=== PATIENT | male | born 1930 | race Caucasian/White ===

== ENCOUNTER 2016-10-12 15:06 | Inpatient (IN) | payer MEDICARE, BC, OTHER ==
--- NOTE | ~2016-10-12 | EKG ---
PATIENT: CLARK, GENE UNIT #: [id number] Ventricular Rate: 80 BPM Atrial Rate: 80 BPM P-R Interval: 130 ms QRS Duration: 86 ms Q-T Interval: 410 ms QTC Calculation(Bezet): 472 ms P [place]: 50 degrees Calculated R [place]: -11 degrees Calculated T [place]: 56 degrees Diagnosis Line: Sinus rhythm with sinus arrhythmia with occasional Diagnosis Line: Premature ventricular complexes Diagnosis Line: Nonspecific ST abnormality Diagnosis Line: Abnormal ECG Diagnosis Line: When compared with ECG of 19-MAY-2016 11:45, Diagnosis Line: Premature ventricular complexes are now Present Diagnosis Line: Confirmed by TIFF ROSADO MD ([id number]) on Diagnosis Line: 10/12/2016 11:02:09 PM INTERPRETING : LYNDON
--- NOTE | ~2016-10-12 | CR72 ---
[facility] A Service of [facility] RADIOLOGY TEXT RESULTS PATIENT: KYA RODAS LOCATION: [facility] 316-01 : 29 UNIT #: [id number] AGE: [address]: ANNMARIE LOZADA MD SEX: M ORDER DR: [id number] [facility] [address] [place], [place] [address] [id number] MR#: [id number] Acc #: [id number] NAME: KYA RODAS : 1930 SEX: M STUDY DATE/TIME: 10/12/2016 15:18 UNIT: [facility] ROOM: STUDY DESCRIPTION: CR Chest Single View Portable Attending Physician: Rhiannon Byrd M.D. Ordering Physician: Rhiannon Byrd M.D. Primary Care Physician: No Primary Care Physician MEDICAL IMAGING REPORT This report is preliminary unless electronic signature is present EXAM Portable chest 10/12/2016 HISTORY Shortness of air, weakness, cough for 3 weeks. COMPARISON STUDIES 05/19/2016 A portable view of the chest was obtained. FINDINGS The heart size and vascularity are normal. The lungs are clear. The bones are unremarkable. IMPRESSION No active disease. Dictated by... Ed Varner M.D. THIS IS AN ELECTRONICALLY VERIFIED REPORT Ed Varner M.D. at 10/13/2016 8:24 AM [place] TD: 10/12/2016 16:56 JOB #: [id number] MEDICAL IMAGING REPORT COPY
--- NOTE | ~2016-10-12 | CT4 ---
[facility] A Service of [facility] RADIOLOGY TEXT RESULTS PATIENT: KYA RODAS [facility] 316-01 : 29 UNIT #: [id number] AGE: [address]: ANNMARIE LOZADA MD SEX: M ORDER DR: [id number] [facility] [address] [place], [place] [address] [id number] E MR#: [id number] Acc #: [id number] NAME: KYA RODAS : 1930 SEX: M STUDY DATE/TIME: 10/12/2016 15:52 UNIT: [facility] ROOM: STUDY DESCRIPTION: CT Abd and Pelv Wo Cont Attending Physician: Rhiannon Byrd M.D. Ordering Physician: Rhiannon Byrd M.D. MEDICAL IMAGING REPORT This report is preliminary unless electronic signature is present EXAM CT abdomen and pelvis without contrast HISTORY Generalized weakness, confusion for a week, no appetite. COMPARISON STUDIES 07/04/2010. TECHNIQUE Axial 5 mm images were obtained through the abdomen and pelvis without IV or oral contrast. This CT exam was performed with one or more of the following radiation dose reduction techniques: automatic exposure control, adjustment of mA and/or kV according to patient size, and iterative reconstruction. FINDINGS Lung bases are clear. The liver, gallbladder, spleen, pancreas, adrenal glands and aorta are normal in appearance. The right kidney has a 2.8 cm cyst with a small cyst in the left upper pole and there is also a lower pole right renal cyst measuring 3.5 cm in diameter. There is no adenopathy. The bowel, including the appendix, appears normal, except for some sigmoid diverticula. The bladder and prostate gland are normal. There are marked degenerative changes throughout the lumbar spine. IMPRESSION 1. Bilateral renal cysts. 2. Sigmoid diverticulosis. 3. Degenerative changes lumbar spine. [facility] A Service [facility] RADIOLOGY TEXT RESULTS PATIENT: KYA RODAS LOCATION: [facility] 316-01 : 29 UNIT #: [id number] AGE: [address]: ANNMARIE LOZADA MD SEX: M ORDER DR: Dictated by... Ed Varner M.D. THIS IS AN ELECTRONICALLY VERIFIED REPORT Ed Varner M.D. at 10/13/2016 8:25 AM FEL/pcl TD: 10/12/2016 18:01 JOB #: [id number] MEDICAL IMAGING REPORT COPY
--- NOTE | ~2016-10-12 | CT71 ---
[facility] A Service [facility] RADIOLOGY TEXT RESULTS PATIENT: KYA RODAS LOCATION: [facility] 316 : 29 UNIT #: [id number] AGE: [address]: Flex Fernandez MD SEX: M ORDER DR: [id number] [facility] [address] [place], [place] [address] [id number] I MR#: [id number] Acc #: [id number] NAME: KYA RODAS. : 1930 SEX: M STUDY DATE/TIME: 10/12/2016 15:45 UNIT: C3A PCU ROOM: [facility] STUDY DESCRIPTION: CT Head Wo Contrast Attending Physician: Suellen Coats M.D. Ordering Physician: Rhiannon Byrd M.D. Primary Care Physician: Primary Care Physician No MEDICAL IMAGING REPORT This report is preliminary unless electronic signature is present EXAM CT brain without contrast media, dated 10/12/2016. COMPARISON STUDIES Comparison examination 04/06/2016. HISTORY Generalized weakness. No appetite for 1 week. Increasing confusion. TECHNIQUE Transaxial imaging of the brain was performed without contrast media. FINDINGS This exam shows generalized enlargement of the ventricles and CSF-containing spaces. There is some decreased attenuation in the periventricular white matter. No mass lesions, mass effect, evidence of acute hemorrhage or edema. No intra- or extraaxial fluid collections are present. There is atherosclerotic disease in both vertebral arteries and both carotid siphons. The bone windows are reviewed. Patient has some mild chronic ethmoid sinus disease. CONCLUSION 1. Generalized atrophy and minimal small vessel deep white matter ischemic changes. Atrophy is quite pronounced and has not changed significantly from the studies of March 2016. No acute intracranial findings. 2. Diffuse atherosclerotic disease. 3. Chronic ethmoid sinus disease. Dictated by... [facility] A Service [facility] RADIOLOGY TEXT RESULTS PATIENT: KYA RODAS LOCATION: [facility] 316 : 29 UNIT #: [id number] AGE: [address]: Flex Fernandez MD SEX: M ORDER DR: Alexi Burton M.D. THIS IS AN ELECTRONICALLY VERIFIED REPORT Alexi Burton M.D. at 10/14/2016 12:04 PM VIKY/manuel TD: 10/12/2016 18:29 JOB #: [id number] MEDICAL IMAGING REPORT COPY
--- NOTE | ~2016-10-12 | DS ---
Unit #: [id number] #: [id number] Patient: KYA RODAS [id number] [address] [place], [place] [address] [id number] MR#: [id number] NAME: KYA RODAS. ROOM: 316 Age: 86 Sex: M Admission Date: 10/13/2016 : 1930 Discharge Date: 10/16/2016 Attending Physician: Flex Fernandez M.D. Primary Care Physician: No Primary Care Physician DISCHARGE SUMMARY DISCHARGE DIAGNOSES 1. Generalized weakness, likely multifactorial with worsening dementia and acute kidney injury. 2. Acute kidney injury resolved, likely prerenal, resolved with normal saline, intravenous fluid titration. 3. Dementia with delirium present on the admission, likely secondary to acute worsening dementia, as well as acute kidney injury. Patient had a one-on-one sitter on admission. The patient is still confused but is pleasantly confused at this time. 4. Microcytic hematuria. Patient will need outpatient followup with urology. I have spoke with the patient's daughter and his about this and they voice understanding. 5. Hypokalemia. Will replace. 6. Type 2 diabetes. Accu-Chek has been stable and were all below 200. 7. Bacteremia. Final culture had revealed contaminates with a growth of Diphtheroids and Staph coagulase. Repeat blood cultures negative at this point. The patient was tentatively treated with vancomycin in the period that we were waiting for final urine culture. 8. Transaminitis without abdominal pain noted on lab. Will reduce Lipitor to 40 mg orally at bedtime to be started one week from now to give his liver a rest. CONSULTANTS None. PROCEDURES None. IMAGING STUDIES 1. Chest x-ray on 10/12/2016 - Impression: No active disease. 2. Head CT without contrast - Conclusion: Generalized atrophy and minimal small vessel deep white matter ischemic changes. Atrophy is quite pronounced and has not changed significantly from the studies of 03/2016. No acute intracranial findings. Diffuse atherosclerotic disease. Chronic ethmoid sinus disease. 3. CT abdomen and pelvis on 10/12/2016 - Impression: Bilateral renal cyst. Sigmoid diverticulosis. Degenerative changes lumbar spine. LABS Today's labs includes glucose of 115, BUN 26, creatinine 1.1, sodium 142, potassium 3.3, chloride 107, CO2 25, calcium is 9.1, total protein is 6.3, albumin 3.8, total bilirubin is 1.3. Patient has a component of transaminitis on labs with AST of 63, ALT of 67, but again total bilirubin is 1.3. Unit #: [id number] #: [id number] Patient: KYA RODAS [facility] The patient is a demented 86-year-old male with a past medical history of essential hypertension, peripheral artery disease, dementia who was brought to the emergency department. (1) intake. The patient has had decreased oral intake for about the last few weeks. It has gradually worsened with no oral intake in the last week. Patient has no pain, swelling, or any abdominal pain. The patient has not been eating or drinking or had any oral intake in the last two days prior to admission. The patient is a poor historian. History was obtained from the patient's and daughter who was at the bedside. In the emergency department (2) needs. History is limited due to patient's dementia. Chest x-ray, head CT, and CT of abdomen and pelvis were done in the emergency department with results as stated above. The patient was admitted for generalized weakness and dehydration. Due to decreased oral intake, likely due to his worsening dementia, we had obtained blood culture to rule out any infectious process. I was treating the patient with vancomycin for two days due to blood culture that had grew Staph coagulase and did not finalize until a few days later with culture consisting with contaminate with Staph coagulase, as well as diphtheroids. Repeat blood culture is negative at this point. The patient is receiving PT and OT at this time. I have spoken to the patient's and his daughter with regards to the patient's severe dementia and reduce oral intake but this would be a cycle for acute kidney injury to his dementia and not wanting to eat. I have discussed with them the possibility of just focusing on quality of life and enjoying his good days with him and on his bad days just continue to watch him. They have denied Hospice at this time. They said they are not ready for it. 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 I have also spoke with patient's and his daughter about the possibility of ultimately placing patient into a [facility], as he becomes more and more demented. The had voiced understanding. The other incidental finding is transaminitis with liver enzymes with AST of 63, ALT of 67, these are elevated in comparison to back in April of 2016 we know it was 25 and 15 respectively. With his decreased oral intake there is a possibility that he is going to repeatedly injury his liver, therefore, I am reducing the atorvastatin from 80 mg orally at bedtime to 40 mg at bedtime and to be restarted within a week from now. The patient and his family should again consider just stopping this altogether, as well as stopping all oral medications all together, given his level of dementia. Patient's blood pressure has been slightly elevated during this hospitalization, therefore I'm increasing his Coreg from 3.125 to 6.25 mg orally twice daily. I believe the patient has reached his maximum benefit of hospitalization and will go to rehab, per patient's family choice to strengthen him a little bit, to reduce any healthcare burden, provider burden. DISCHARGE CONDITION Stable. DISCHARGE DISPOSITION To rehab facility. DISCHARGE FOLLOWUP Followup with PCP within one to two weeks. DISCHARGE MEDICATIONS 1. Flomax 0.4 mg orally daily. Unit #: [id number] #: [id number] Patient: KYA RODAS 2. Sertraline 100 mg orally daily. 3. Lipitor 40 mg orally at bedtime to be started on 10/12/2016. 4. Haldol 2 mg orally at bedtime. 5. Coreg 6.25 mg orally twice daily. Hold for systolic blood pressure less than 110 or heart rate less than 16. 6. Aspirin 81 mg orally daily. 7. Brilinta 90 mg orally twice daily. 8. Protonix 40 mg orally twice daily. 9. Imdur 30 mg orally daily. 10. Nitroglycerin 0.4 mg sublingually every 5 minutes as needed for chest pain. Dictated by... Heydi Russo PA-C for Flex Fernandez M.D. KURT/william TD: 10/15/2016 11:28 JOB #: [id number] DISCHARGE SUMMARY X X DISCHARGE SUMMARY
--- NOTE | ~2016-10-12 | HP ---
Unit #: [id number] #: [id number] Patient: KYA RODAS [id number] [address] [place], [place] [address] [id number] E MR#: [id number] NAME: KYA RODAS ROOM: Age: 86 Sex: M Admission Date: 10/12/2016 : 1930 Attending Physician: Rhiannon Byrd M.D. Primary Care Physician: Primary Care Physician No HISTORY AND PHYSICAL CHIEF COMPLAINT Generalized weakness. HISTORY OF PRESENT ILLNESS The patient is an 86-year-old male with a history of hypertension, peripheral arterial disease, and dementia, brought to the emergency room with decreased oral intake. The patient has had decreased oral intake for the last few weeks and has gradually worsened to no oral intake for the last week. The patient has no pain, swelling, or any abdominal pain, but patient has not been drinking or taking any oral liquids for the last two days. The patient is a poor historian, and the history is obtained by speaking to the patient's and the daughter at the bedside, the ER physician, and reviewing the records. The patient denies any chest pain, nausea, vomiting, or abdominal pain. The patient denies any fall, palpitations, or cough. History is limited secondary to the patient's history of dementia. PAST MEDICAL HISTORY 1. Sinus bradycardia. 2. Hypertension. 3. Chronic pain syndrome. 4. Peripheral arterial disease with less than 50% stenosis in the bilateral carotids. 5. Reformed tobacco abuse. PAST SURGICAL HISTORY 1. Right hand surgery. 2. Transurethral resection of the prostate. HOME MEDICATIONS 1. Trazodone. 2. Haloperidol. 3. Isosorbide. 4. Protonix. 5. Nitroglycerin. 6. Aspirin. 7. Brilinta. 8. Lipitor. 9. Coreg. 10. Flomax. ALLERGIES PENICILLIN. Unit #: [id number] #: [id number] Patient: KYA RODAS SOCIAL HISTORY The patient lives in (1) with his . He quit smoking 50 years ago. There are no reports of alcohol or any illicit drug abuse. FAMILY HISTORY Heart disease. REVIEW OF SYSTEMS A 14-point review of systems was performed and only pertinent positive findings are described above. The remaining are negative. PHYSICAL EXAMINATION GENERAL: Patient is lying in bed not in acute distress. VITAL SIGNS: Temperature 97.9, pulse 73, respiratory rate 21, blood pressure 205/99, and saturating 96% on room air. HEENT: Head atraumatic, normocephalic. Pupils equal, round, and reactive to light and accommodation. Extraocular movements are intact. Dry mucous membranes. NECK: Supple. No JVD. LUNGS: Decreased air entry at the bases. HEART: Regular rate and rhythm, tachycardic. ABDOMEN: Soft. Positive bowel sounds. EXTREMITIES: No cyanosis, no clubbing. NEUROLOGIC: Alert, awake, oriented, and confused. DIAGNOSTIC STUDIES LABORATORY: Glucose 130, BUN 39, creatinine 1.3, sodium 139, potassium 3.3, chloride 101, bicarb 24, calcium 9.5, total protein 7.6, total bilirubin 2.4, AST 59, ALT 51, and alkaline phosphatase 80. BNP is 148. Lactic acid is 1.9. INR is 1.1. WBC 12.2, hemoglobin 15.2, hematocrit 46.3, platelets 221,000, and neutrophils 76.4. Urinalysis shows 5-10 urine RBCs and 2+ protein. IMAGING: CT of the abdomen and pelvis is negative. ASSESSMENT 1. Dehydration. 2. Weakness. 3. Hypokalemia. 4. Uncontrolled diabetes mellitus. PLAN Admit the patient to observation. Continue with IV fluids of D5 half NS at 75 mL/hour. Will have a nutrition consult in the morning with the dietitian. Control the blood pressure with patient's home medication of Coreg. Repeat the CBC and BMP in the morning. Replace the potassium with K-Dur 20 mEq p.o. x1. Sitter at the bedside (2) . Further recommendations will follow as more lab results are available. Dictated by Mario Parr TD: 10/12/2016 20:16 JOB #: [id number] Unit #: [id number] #: [id number] Patient: KYA RODAS HISTORY AND PHYSICAL X X HISTORY AND PHYSICAL
[2016-10-12 14:22] LABS: BASOPHIL% 0.2 % (0-2.5); HEMATOCRIT 46.3 % (38.0-50.0); HEMOGLOBIN 15.2 gm/dL (13.0-16.0); LYMPHOCYTE# 2.1 X10e3 (1.0-3.5); LYMPHOCYTE% 17.5 % (17.0-45.0); MEAN CELL VOLUME 88.8 FL (83-96); MEAN CORPUSCULAR HEMOGLOBIN 29.2 PG (28-34); MEAN CORPUSCULAR HGB CONC 32.9 g/dL (30-36); MEAN PLATELET VOLUME 9.7 FL (6.5-11.5); MONOCYTE# 0.7 X10e3 (0-1.0); MONOCYTE% 5.9 % (3.0-12.0); NEUTROPHIL# 9.3 X10e3 (1.5-7.1); NEUTROPHIL% 76.4 % (40-75); PLATELET COUNT 221 X10e3 (140-420); RED BLOOD COUNT 5.21 X10e (3.90-5.60); RED CELL DISTRIBUTION WIDTH 15.5 % (11.0-15.5); WHITE BLOOD COUNT 12.2 X10e3 (4.0-10.5)
[2016-10-12 14:28] LABS: POC - CKMB 3.9 ng/mL (0.0-7.9)
[2016-10-12 14:29] LABS: POC - TROPONIN <0.05 ng/mL (<=0.05)
[2016-10-12 14:29] LABS: DIFF IND NO
[2016-10-12 14:53] LABS: ALBUMIN SERUM 4.8 g/dL (3.5-5.0); BILIRUBIN, DIRECT 0.5 mg/dL (0.0-0.2); BILIRUBIN,INDIRECT 1.9 mg/dL (0.0-0.9); BILIRUBIN,TOTAL 2.4 mg/dL (0.2-2.0); CALCIUM SERUM 9.5 mg/dL (8.4-10.2); CREATININE SERUM 1.3 mg/dL (0.6-1.4); GLOM FILT RATE Estimated 55.5 mL/min (>60); POTASSIUM 3.3 mmol/L (3.5-5.1); PROTEIN TOTAL SERUM 7.6 g/dL (6.0-8.3)
[~2016-10-12 15:06] MED LIST: AMLODIPINE-BENA1 CAP PO; ASPIRIN EC81 M1 PO; ASPIRIN81 M2 PO; B-121000 MC1 PO; BRILINTA90 MG PO; CIPRO PO; COREG3.125 M1 PO; DESYREL100 MG PO; FLOMAX0.4 M1 PO; HALOPERIDOL2 MG PO; ISOSORBIDE MONO30 MG PO; LIPITOR80 MG PO; NAPROXEN PO; NAPROXEN250 MG PO; NITROGLYGERIN0.4 MG SL; PERCOCET 5-3251 TAB PO; PROTONIX PO
[2016-10-12 15:39] LABS: URINE APPEARANCE CLEAR; URINE BILIRUBIN NEG (NEG); URINE BLOOD 2+ (NEG); URINE COLOR DK YELLOW; URINE GLUCOSE NEG (NEG); URINE KETONE 2+ (NEG); URINE LEUKOCYTE ESTERASE NEG (NEG); URINE NITRATE NEG (NEG); URINE PH 5.5 (5-8); URINE PROTEIN 2+ (NEG); URINE SPECIFIC GRAVITY 1.029 (1.003-1.035)
[2016-10-12 15:42] LABS: URINE SQUAMOUS EPITHELIAL CELL OCC /[HPF]
[2016-10-12 16:01] LABS: URINE SOURCE CATH
[2016-10-12 16:14] LABS: CULTURE INDICATED? YES; U HYALINE CASTS AUWI 0-2 /[LPF]; URINE AMORPHOUS SEDIMENT AMORP URATES; URINE BACTERIA AUWI 1+ (NEGATIVE); URINE GRANULAR CAST 0-2 /[HPF]; URINE MUCUS PRESENT; UWBCS1 AUWI 0-2 (0-5)
[2016-10-13 08:01] LABS: BASOPHIL% 0.3 % (0-2.5); EOSINOPHIL% 0.3 % (0.0-7.0); HEMATOCRIT 41.1 % (38.0-50.0); HEMOGLOBIN 13.7 gm/dL (13.0-16.0); LYMPHOCYTE# 1.5 X10e3 (1.0-3.5); LYMPHOCYTE% 13.5 % (17.0-45.0); MEAN CELL VOLUME 89.2 FL (83-96); MEAN CORPUSCULAR HEMOGLOBIN 29.7 PG (28-34); MEAN CORPUSCULAR HGB CONC 33.2 g/dL (30-36); MEAN PLATELET VOLUME 9.6 FL (6.5-11.5); MONOCYTE# 1.1 X10e3 (0-1.0); MONOCYTE% 10.4 % (3.0-12.0); NEUTROPHIL# 8.3 X10e3 (1.5-7.1); NEUTROPHIL% 75.5 % (40-75); PLATELET COUNT 177 X10e3 (140-420); RED BLOOD COUNT 4.61 X10e (3.90-5.60); RED CELL DISTRIBUTION WIDTH 15.4 % (11.0-15.5)
[2016-10-13 08:04] LABS: DIFF IND NO
[2016-10-13 08:51] LABS: BLOOD UREA NITROGEN 25 mg/dL (9-23); BUN/CREATININE RATIO 27.77; CALCIUM SERUM 8.7 mg/dL (8.4-10.2); CARBON DIOXIDE 25 mmol/L (22-31); CHLORIDE 106 mmol/L (100-111); CREATININE SERUM 0.9 mg/dL (0.6-1.4); GLOM FILT RATE Estimated ABOVE60 mL/min (>60); GLUCOSE FASTING 151 mg/dL (70-110); SODIUM 138 mmol/L (135-145)
[2016-10-13] MEDS ORDERED: ZOLOFT100 MG PO (12:45)
[2016-10-14 05:33] LABS: HEMATOCRIT 40.8 % (38.0-50.0); HEMOGLOBIN 13.8 gm/dL (13.0-16.0); MEAN CELL VOLUME 89.4 FL (83-96); MEAN CORPUSCULAR HEMOGLOBIN 30.2 PG (28-34); MEAN CORPUSCULAR HGB CONC 33.8 g/dL (30-36); MEAN PLATELET VOLUME 10.3 FL (6.5-11.5); RED BLOOD COUNT 4.56 X10e (3.90-5.60); WHITE BLOOD COUNT 8.4 X10e3 (4.0-10.5)
[2016-10-14 06:12] LABS: BLOOD UREA NITROGEN 21 mg/dL (9-23); BUN/CREATININE RATIO 23.33; CARBON DIOXIDE 26 mmol/L (22-31); CHLORIDE 106 mmol/L (100-111); CREATININE SERUM 0.9 mg/dL (0.6-1.4); GLOM FILT RATE Estimated ABOVE60 mL/min (>60); GLUCOSE FASTING 112 mg/dL (70-110); POTASSIUM 3.5 mmol/L (3.5-5.1); SODIUM 141 mmol/L (135-145)
[2016-10-15 07:14] LABS: HEMOGLOBIN 13.9 gm/dL (13.0-16.0); MEAN CELL VOLUME 90.2 FL (83-96); MEAN CORPUSCULAR HEMOGLOBIN 29.9 PG (28-34); MEAN CORPUSCULAR HGB CONC 33.2 g/dL (30-36); RED BLOOD COUNT 4.65 X10e (3.90-5.60); RED CELL DISTRIBUTION WIDTH 15.6 % (11.0-15.5); WHITE BLOOD COUNT 6.9 X10e3 (4.0-10.5)
[2016-10-15 08:06] LABS: ALBUMIN SERUM 3.8 g/dL (3.5-5.0); ALKALINE PHOSPHATASE 65 U/L (32-92); ALT (SGPT) 67 U/L (10-40); AST (SGOT) 63 U/L (10-42); BILIRUBIN,TOTAL 1.3 mg/dL (0.2-2.0); BLOOD UREA NITROGEN 26 mg/dL (9-23); BUN/CREATININE RATIO 23.63; CALCIUM SERUM 9.1 mg/dL (8.4-10.2); CARBON DIOXIDE 25 mmol/L (22-31); CHLORIDE 107 mmol/L (100-111); CREATININE SERUM 1.1 mg/dL (0.6-1.4); GLOM FILT RATE Estimated ABOVE60 mL/min (>60); GLUCOSE FASTING 115 mg/dL (70-110); POTASSIUM 3.3 mmol/L (3.5-5.1); PROTEIN TOTAL SERUM 6.3 g/dL (6.0-8.3); SODIUM 142 mmol/L (135-145)
[2016-10-16 08:08] LABS: HEMATOCRIT 41.5 % (38.0-50.0); HEMOGLOBIN 13.8 gm/dL (13.0-16.0); MEAN CELL VOLUME 90.7 FL (83-96); MEAN CORPUSCULAR HEMOGLOBIN 30.2 PG (28-34); MEAN CORPUSCULAR HGB CONC 33.3 g/dL (30-36); MEAN PLATELET VOLUME 10.5 FL (6.5-11.5); RED BLOOD COUNT 4.57 X10e (3.90-5.60); RED CELL DISTRIBUTION WIDTH 15.1 % (11.0-15.5); WHITE BLOOD COUNT 8.8 X10e3 (4.0-10.5)
[2016-10-16 08:43] LABS: BLOOD UREA NITROGEN 25 mg/dL (9-23); BUN/CREATININE RATIO 27.77; CALCIUM SERUM 9.2 mg/dL (8.4-10.2); CARBON DIOXIDE 26 mmol/L (22-31); CHLORIDE 106 mmol/L (100-111); CREATININE SERUM 0.9 mg/dL (0.6-1.4); GLOM FILT RATE Estimated ABOVE60 mL/min (>60); GLUCOSE FASTING 108 mg/dL (70-110); MAGNESIUM 1.9 mg/dL (1.6-3.0); POTASSIUM 3.6 mmol/L (3.5-5.1); SODIUM 141 mmol/L (135-145)
== END 2016-10-16 14:30 | DRG 683 ==
LOC: CED 15:06 → CEDOF 19:55 → C3A PCU 10-13 11:15
PROVIDERS: Internal Medicine; Physician Assistant Medical; Student in an Organized Health Care Education/Training Program
DX: N17.9 Acute kidney failure, unspecified (principal); F05 Delirium due to known physiological condition; E11.65 Type 2 diabetes mellitus with hyperglycemia; F03.90 Unspecified dementia, unspecified severity, without behavioral disturbance, psychotic disturbance, mood disturbance, and anxiety; R31.29 Other microscopic hematuria; R31.9 Hematuria, unspecified; E11.9 Type 2 diabetes mellitus without complications; E87.6 Hypokalemia; R74.0 Nonspecific elevation of levels of transaminase and lactic acid dehydrogenase [LDH]; I10 Essential (primary) hypertension; I73.9 Peripheral vascular disease, unspecified; E86.0 Dehydration; Z79.82 Long term (current) use of aspirin; Z79.01 Long term (current) use of anticoagulants; G89.4 Chronic pain syndrome; Z87.891 Personal history of nicotine dependence
CPT/HCPCS: 36415; 70450; 71010; 74176; 80048; 80053; 80076; 81003; 82553; 82947; 83036; 83605; 83735; 83880; 84484; 85025; 85027; 87040; 87086; 90688; 93005; 94760; 96374; 96375; 97116; 97162; 97166; 97535; 99285; G8978-GP; G8979-GP; G8987-GO; G8988-GO; J0360; J1650; J1815; J2405; J3370

== ENCOUNTER 2016-11-27 18:24 | Emergency (ER) | payer MEDICARE, BC ==
--- NOTE | ~2016-11-27 | CR132 ---
[facility] A Service of [facility] & [facility] RADIOLOGY TEXT RESULTS PATIENT: KYA RODAS LOCATION: [facility] : 29 UNIT #: [id number] AGE: [address]: Sandeep Anders MD SEX: M ORDER DR: [id number] [facility] [address] [place], [place] [address] [id number] E MR#: [id number] Acc #: [id number] NAME: KYA RODAS. : 1930 SEX: M STUDY DATE/TIME: 11/27/2016 17:58 UNIT: [facility] ROOM: STUDY DESCRIPTION: CR Forearm 2 View Lt Attending Physician: Sandeep Anders M.D. Ordering Physician: Ed Vic Hewitt M.D. Primary Care Physician: No Primary Care Physician MEDICAL IMAGING REPORT This report is preliminary unless electronic signature is present EXAM Left forearm 2 views HISTORY Arm pain and bruising after fall today. FINDINGS 2 views left forearm demonstrate normal bone alignment. No fracture, or dislocation. Mild degenerative changes in the wrist, particularly at the distal radioulnar joint with more advanced degenerative changes in the first CMC joint. IMPRESSION No acute finding Dictated by... Haris Weiss M.D. THIS IS AN ELECTRONICALLY VERIFIED REPORT Haris Weiss M.D. at 11/28/2016 11:17 PM DFL/mayra TD: 11/28/2016 01:43 JOB #: [id number] MEDICAL IMAGING REPORT Page 1 of 1 COPY
--- NOTE | ~2016-11-27 | CT71 ---
[facility] A Service of [facility] & [facility] RADIOLOGY TEXT RESULTS PATIENT: KYA RODAS LOCATION: [facility] : 29 UNIT #: [id number] AGE: [address]: Sandeep Anders MD SEX: M ORDER DR: [id number] [facility] [address] [place], [place] [address] [id number] E MR#: [id number] Acc #: [id number] NAME: KYA RODAS. : 1930 SEX: M STUDY DATE/TIME: 11/27/2016 18:01 UNIT: [facility] ROOM: STUDY DESCRIPTION: CT Head Wo Contrast Attending Physician: Sandeep Anders M.D. Ordering Physician: Sandeep Anders M.D. Primary Care Physician: No Primary Care Physician MEDICAL IMAGING REPORT This report is preliminary unless electronic signature is present EXAM CT head without contrast dated 11/27/[address] head without contrast dated 10/12/2016. HISTORY Patient fell this afternoon at 02:00 p.m. with laceration to the head. It is in the left temporal region. Patient is confused today. TECHNIQUE This CT exam was performed with one or more of the following radiation dose reduction techniques: automatic control, adjustment of mA and/or kV according to patient size, and iterative reconstruction. FINDINGS CT of the head was obtained without contrast in the axial plane as per the protocol. Age-appropriate parenchymal volume loss is seen. No acute intracranial hemorrhage, hydrocephalus or midline shift is seen. Atherosclerotic arteriovascular calcifications are noted in the [place]. 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 There is a large swelling/hematoma in the left frontotemporal scalp measuring about 7.5 cm in AP dimension and 9-10 mm in transverse dimension. It extends to just about and anterior to the left external ear. No underlying fracture or acute intracranial hemorrhage. Nasal septum is deviated to the left. Paranasal sinuses, mastoid air cells are well-aerated. Orbits and the ocular structures do not demonstrate any significant abnormality. Minimal hypodensity is in the periventricular white matter, likely related to mild chronic microvascular ischemic change or migraine based on age and statistics. IMPRESSION [facility] A Service of [facility] & [facility] RADIOLOGY TEXT RESULTS PATIENT: KYA RODAS LOCATION: [facility] : 29 UNIT #: [id number] AGE: [address]: Sandeep Anders MD SEX: M ORDER DR: 1. No demonstrable acute intracranial abnormality or fracture. 2. Scalp soft tissue swelling is noted in the left frontotemporal region measuring at least 7.5 cm in AP dimension and 9-10 mm in thickness. 3. Minimal hypodensity is in the periventricular white matter, likely related to mild chronic microvascular ischemic change or migraine based on age and statistics. Dictated by... Tomi Ortega M.D. THIS IS AN ELECTRONICALLY VERIFIED REPORT Tomi Ortega M.D. at 11/30/2016 1:44 PM CPR/rnr TD: 11/28/2016 01:33 JOB #: [id number] MEDICAL IMAGING REPORT Page 1 of 1 COPY
[~2016-11-27 18:24] MED LIST changes: +ZOLOFT100 MG PO
== END 2016-11-27 21:19 | disposition home or self-care (01) ==
LOC: CED 18:24
DX: S09.90XA Unspecified injury of head, initial encounter (principal); S51.812A Laceration without foreign body of left forearm, initial encounter; S00.03XA Contusion of scalp, initial encounter; I25.10 Atherosclerotic heart disease of native coronary artery without angina pectoris; I10 Essential (primary) hypertension; W05.0XXA Fall from non-moving wheelchair, initial encounter; Y92.9 Unspecified place or not applicable; Z88.0 Allergy status to penicillin; Z23 Encounter for immunization
CPT/HCPCS: 70450; 73090; 90471; 90715; 99284